=== PATIENT | female | born 1990 ===

== ENCOUNTER 2021-05-28 04:39 | Observation (INO) | payer OTHER ==
[~2021-05-28] VITALS: Ht 152.4 cm; Wt 60.0 kg
[2021-05-28] VITALS (8 sets, daily range): BP systolic 118–135; BP diastolic 62–87; PULSE 79–92; TEMP 98.3–99.5
[2021-05-28 05:15] LABS: BASO # 0.1 (0.0-0.2); BASO % 0.6 % (0.0-2.0); EOS # 0.3 (0.0-0.7); EOS % 2.6 % (0-4.0); GRAN # 5.6 (1.4-6.5); GRAN % 57.3 % (42.2-75.2); HEMATOCRIT 40.6 % (37.0-47.0); HEMOGLOBIN 13.6 g/dl (12.5-16.0); LYMPH % 30.9 % (20.0-51.0); MEAN CELL VOLUME 86 fl (80.0-100.0); MEAN CORPUSCULAR HEMOGLOBIN 29 pg (27.0-31.0); MEAN CORPUSCULAR HGB CONC 34 g/dl (33.0-37.0); MEAN PLATELET VOLUME 10.1 fl (7.4-10.4); MONO # 0.8 (0.1-0.6); MONO % 8.4 % (1.7-9.3); PLATELET COUNT 288 K/mm3 (130-400); RED BLOOD COUNT 4.73 M/mm3 (4.10-5.30); REDCELL DISTRIBUTION WIDTH-CV 11.7 % (11.5-14.5)
[2021-05-28 05:35] LABS: ALBUMIN 4.1 gm/dL (3.5-5.0); BILIRUBIN,TOTAL 0.3 mg/dL (0.2-1.2); CALCIUM 9.6 mg/dL (8.4-10.2); CREATININE, serum 0.82 mg/dL (0.57-1.11); POTASSIUM 3.8 mmol/L (3.5-4.5); TOTAL PROTEIN 7.9 gm/dL (6.2-8.1)
[2021-05-28 06:27] LABS: COLLECTION METHOD CLEAN CATCH
[2021-05-28 06:33] LABS: MUCOUS Present /lpf; PH 5 (5-8); URINE APPEARANCE Cloudy; URINE BACTERIA Rare /hpf; URINE BILIRUBIN Negative (NEGATIVE); URINE BLOOD 3+ (NEGATIVE); URINE COLOR Yellow; URINE GLUCOSE Negative (NEGATIVE); URINE KETONE Negative (NEGATIVE); URINE LEUKOCYTE ESTERASE Negative (NEGATIVE); URINE NITRATE Negative (NEGATIVE); URINE PROTEIN(semi-quant) Negative (NEGATIVE); URINE UROBILINOGEN Negative (NEGATIVE)
--- NOTE | 2021-05-28 08:54 | NUR ---
Patient up from ER. Alert and oriented x 3. Assessement complete. States pain 3/10 to abdomen at this time. Patient oriented to room. Denies further needs at this time.
--- NOTE | 2021-05-28 10:10 | NUR ---
MYRIAM met with the patient and her daughter, Connie, to discuss discharge plan. The patient is peruvian speaking. Connie translated. The patient lives in [place] with her (Catarino, ph#[phone]), Connie, her son, and uncle. Connie reports that the patient is independent with ADLs and does not have a DME. The patient has listed that she goes to [facility] in [place]. Connie translates that the patient has not been to [facility] and that the patient is not interested in getting established there at this time. The patient receives her medications from [facility] and Connie reports no difficulties obtaining the patient's meds. Connie confirms that the patient is self pay. SW to consult Financial Counseling. The patient does not have a DPOA-HC. The patient plans to return home with her family upon discharge. Connie notified MYRIAM that the patient's wristband has the wrong year for the patient. The patient was born in 1989. MYRIAM notified Trey in admissions. No additional needs at this time. *Discharge plan: home with family*
--- NOTE | 2021-05-28 16:30 | NUR ---
Dr. Dumont in to see patient.
--- NOTE | 2021-05-28 16:51 | NUR ---
Patient to OR by bed.
[2021-05-28] MEDS ORDERED: PYRIDIUM 100MG100 MG PO (17:38)
--- NOTE | 2021-05-28 18:10 | NUR ---
Patient up from OR by bed. Denies pain at this time. Post op fluids infusing to LAC IV. Post op VSS. Denies needs at this time.
--- NOTE | 2021-05-28 18:59 | NUR ---
Patient up ambulated to restroom, tolerating liquids and diet without difficulties. Discharge education provided to patient and daughter. Educated on when to call provider and scheduling follow up appointment. All questions answered. Patient will be discharged by clicking machine operator RN. Denies further needs at this time. Reported off to clicking machine operator.
--- NOTE | 2021-05-28 19:35 | NUR ---
Pt ready for discharge. Removed SL from left AC, angiocath intact. Discharge instructions given by previous RN, no new questions at this time. Pt has eaten, voided and denies pain. Pts daughter at bedside. Pts will be picking her up.
--- NOTE | 2021-05-28 19:40 | NUR ---
DC'D TO [facility]LE VIA AMBULATORY STATUS. HAS COPY OF DISCHARGE INSTRUCTIONS WITH HER AND PERSONAL BELONGINGS RETURNED.
== END 2021-05-28 19:40 | disposition home or self-care (01) ==
LOC: COL.ER 04:39 → EDBD 07:56 → SURG 07:56
PROVIDERS: Student in an Organized Health Care Education/Training Program; ADMIT Urology
DX: N20.1 Calculus of ureter (principal); Z20.822 Contact with and (suspected) exposure to COVID-19
CPT/HCPCS: C1769; C1894; G0378; J0690; J1100; J1885; J2270; J2405; J3010; J7030; Q9967